=== PATIENT | female | born 1945 | race Caucasian/White ===

== ENCOUNTER 2018-01-30 12:27 | Emergency (ER) | payer MEDICARE ==
[2018-01-30 12:39] VITALS: TEMP 98.1
[2018-01-30] MEDS ORDERED: cloNIDine HCL 0.1 MG TAB PO STA (12:52)
[2018-01-30] MEDS ORDERED: ASPIRIN 81 MG PO STA (12:54)
[2018-01-30] MEDS ORDERED: NITROGLYCERIN SL TABS 0.4 MG TAB SUBLINGUAL PRN (12:55)
--- NOTE | 2018-01-30 12:59 | ED ---
SOB HPI <Akil Peterson - Last Filed: 01/30/18 14:51> - General Source: patient Mode of arrival: wheelchair Limitations: no limitations - History of Present Illness MD Complaint: shortness of breath, cough, chest pain -: hour(s) (5) Quality: dull Consistency: constant Improves With: nothing Worsens With: nothing Associated Symptoms: cough Treatments Prior to Arrival: none - Related Data Home Oxygen Therapy: No <Flora Clay - Last Filed: 01/30/18 15:10> - General Chief Complaint: Shortness of Breath Stated Complaint: Chest pain Time Seen by Provider: 01/30/18 12:40 - History of Present Illness Initial Comments: 72-year-old female presents for shortness of breath that woke her up today. Patient felt a little bit discomfort in the center right-sided for chest but is still ongoing but not very tender only about a 1-2 out of 10 pain level. Patient has been coughing as well but no fevers. Patient has recently moved from [place] in the last 6 months and has not followed up with any physicians here. Patient has not been taking her medications regularly. She states she forgets and doesn't really like to take pills. Patient denies any headache dizziness visual changes she denies any trouble speaking or swallowing. Patient admits to not having much of an appetite most days. No leg edema no changes of weight. No abdominal pain or back pain no dysuria. (Flora Clay) - Related Data Previous Rx's Medication Instructions Recorded predniSONE 10 mg PO DIRECTED #20 tab 01/30/18 Allergies Allergy/AdvReac Type Severity Reaction Status Date / Time codeine Allergy Unknown Verified 01/30/18 12:39 Penicillins Allergy Unknown Verified 01/30/18 12:39 Review of Systems ROS Other: All systems not noted in ROS Statement are negative. <NicholasAkil - Last Filed: 01/30/18 14:51> ROS Other: All systems not noted in ROS Statement are negative. Respiratory: Reports: cough Cardiovascular: Reports: chest pain. Denies: dyspnea on exertion, orthopnea, edema, syncope, paroxysmal nocturnal dyspnea Endocrine: Denies: fatigue Gastrointestinal: Denies: abdominal pain, nausea, vomiting Genitourinary: Denies: dysuria Neurological: Denies: headache, weakness, numbness, paresthesias, confusion, vertigo <Flora Clay - Last Filed: 01/30/18 15:10> ROS Statement: Those systems with pertinent positive or pertinent negative responses have been documented in the HPI. Past Medical History Past Medical History: Coronary Artery Disease (CAD), Chest Pain / Angina, Hyperlipidemia, Hypertension, Myocardial Infarction (DC) History of Any Multi-Drug Resistant Organisms: None Reported Past Surgical History: Heart Catheterization With Stent Past Psychological History: No Psychological Hx Reported Smoking Status: Former smoker Past Alcohol Use History: None Reported Past Drug Use History: None Reported <Flora Clay - Last Filed: 01/30/18 15:10> General Exam Limitations: no limitations General appearance: alert, in no apparent distress Head exam: Present: atraumatic, normocephalic, normal inspection Eye exam: Present: normal appearance, PERRL, EOMI. Absent: scleral icterus, conjunctival injection, periorbital swelling ENT exam: Present: normal exam, mucous membranes moist Neck exam: Present: normal inspection. Absent: tenderness, meningismus, lymphadenopathy Respiratory exam: Present: normal lung sounds bilaterally. Absent: respiratory distress, wheezes, rales, rhonchi, stridor Cardiovascular Exam: Present: regular rate, normal rhythm, normal heart sounds. Absent: systolic murmur, diastolic murmur, rubs, gallop, clicks GI/Abdominal exam: Present: soft, normal bowel sounds. Absent: distended, tenderness, guarding, rebound, rigid Back exam: Present: normal inspection Neurological exam: Present: alert, oriented X3 Psychiatric exam: Present: normal affect, normal mood Skin exam: Present: warm, dry, intact, normal color, rash (Dry scaly thick areas around her ears, psoriatic lesions likely) <Flora Clay - Last Filed: 01/30/18 15:10> Course <Akil Peterson - Last Filed: 01/30/18 14:51> <Flora Clay - Last Filed: 01/30/18 15:10> Vital Signs 01/30/18 01/30/18 01/30/18 12:37 13:10 13:42 Temperature 98.1 F Pulse Rate 96 73 89 Respiratory 20 18 18 Rate Blood Pressure 232/106 213/98 193/83 O2 Sat by Pulse 98 98 99 Oximetry 01/30/18 01/30/18 13:45 13:54 Temperature Pulse Rate 66 67 Respiratory Rate Blood Pressure O2 Sat by Pulse Oximetry - Reevaluation(s) Reevaluation #1: 01/30/18 14:51 I did personally do a [id number] evaluation the patient on several occasions did discuss the findings with her and her sister who was present. Patient is feeling much improved the presentation is consistent with a COPD exacerbation. Her lung sounds initially were very diminished improved after updrafts. I do agree with the assessment and plan. (Akil Peterson) Medical Decision Making - Lab Data Result diagrams: 01/30/18 13:05 01/30/18 13:05 <Akil Peterson - Last Filed: 01/30/18 14:51> - Lab Data Result diagrams: 01/30/18 13:05 01/30/18 13:05 <Flora Clay - Last Filed: 01/30/18 15:10> - Medical Decision Making Reviewed all labs all were negative except for slightly elevated d-dimer which we ordered a stat CTA to rule out PE which was negative. All other testing was negative except for exacerbation of COPD emphysema change.. Patient aware improved with nitro Catapres and DuoNeb. Patient's blood pressure was 142/74 then again 137/72. Patient much improved patient not having any symptoms no chest pain or shortness of breath pain level is 0 out of 10. Patient was also reviewed by Dr. Peterson we will send patient home on prednisone and patient to continue on current medical regimen to make sure she is taking her blood pressure medications which she states she doesn't home along with her inhalers. Patient to have close follow-up with family doctor and heavy equipment rental manager in the next week. Patient established with a seed and fertilizer specialist as well. (Flora Clay) - Lab Data Lab Results 01/30/18 01/30/18 01/30/18 Range/Units 13:05 13:05 13:05 WBC 6.6 (3.8-10.6) k/uL RBC 5.48 H (3.80-5.40) m/uL Hgb 15.2 (11.4-16.0) gm/dL Hct 45.9 (34.0-46.0) % MCV 83.7 (80.0-100.0) fL MCH 27.7 (25.0-35.0) pg MCHC 33.1 (31.0-37.0) g/dL RDW 13.7 (11.5-15.5) % Plt Count 215 (150-450) k/uL Neutrophils % 62 % Lymphocytes % 29 % Monocytes % 5 % Eosinophils % 2 % Basophils % 1 % Neutrophils # 4.1 (1.3-7.7) k/uL Lymphocytes # 2.0 (1.0-4.8) k/uL Monocytes # 0.3 (0-1.0) k/uL Eosinophils # 0.1 (0-0.7) k/uL Basophils # 0.0 (0-0.2) k/uL D-Dimer (<0.60) mg/L FEU Sodium 144 (137-145) mmol/L Potassium 3.6 (3.5-5.1) mmol/L Chloride 105 (98-107) mmol/L Carbon Dioxide 24 (22-30) mmol/L Anion Gap 15 mmol/L BUN 11 (7-17) mg/dL Creatinine 0.64 (0.52-1.04) mg/dL Est GFR (CKD-EPI)AfAm >90 (>60 ml/min/1.73 sqM) Est GFR (CKD-EPI)NonAf 90 (>60 ml/min/1.73 sqM) Glucose 86 (74-99) mg/dL Calcium 9.7 (8.4-10.2) mg/dL Total Bilirubin 0.7 (0.2-1.3) mg/dL AST 31 (14-36) U/L ALT 28 (9-52) U/L Alkaline Phosphatase 77 (38-126) U/L Total Creatine Kinase 50 (30-135) U/L CK-MB (CK-2) 0.8 (0.0-2.4) ng/mL CK-MB (CK-2) Rel Index 1.6 Total Protein 6.8 (6.3-8.2) g/dL Albumin 4.2 (3.5-5.0) g/dL TSH 2.630 (0.465-4.680) mIU/L 01/30/18 Range/Units 13:05 WBC (3.8-10.6) k/uL RBC (3.80-5.40) m/uL Hgb (11.4-16.0) gm/dL Hct (34.0-46.0) % MCV (80.0-100.0) fL MCH (25.0-35.0) pg MCHC (31.0-37.0) g/dL RDW (11.5-15.5) % Plt Count (150-450) k/uL Neutrophils % % Lymphocytes % % Monocytes % % Eosinophils % % Basophils % % Neutrophils # (1.3-7.7) k/uL Lymphocytes # (1.0-4.8) k/uL Monocytes # (0-1.0) k/uL Eosinophils # (0-0.7) k/uL Basophils # (0-0.2) k/uL D-Dimer 0.69 H (<0.60) mg/L FEU Sodium (137-145) mmol/L Potassium (3.5-5.1) mmol/L Chloride (98-107) mmol/L Carbon Dioxide (22-30) mmol/L Anion Gap mmol/L BUN (7-17) mg/dL Creatinine (0.52-1.04) mg/dL Est GFR (CKD-EPI)AfAm (>60 ml/min/1.73 sqM) Est GFR (CKD-EPI)NonAf (>60 ml/min/1.73 sqM) Glucose (74-99) mg/dL Calcium (8.4-10.2) mg/dL Total Bilirubin (0.2-1.3) mg/dL AST (14-36) U/L ALT (9-52) U/L Alkaline Phosphatase (38-126) U/L Total Creatine Kinase (30-135) U/L CK-MB (CK-2) (0.0-2.4) ng/mL CK-MB (CK-2) Rel Index Total Protein (6.3-8.2) g/dL Albumin (3.5-5.0) g/dL TSH (0.465-4.680) mIU/L Disposition <Akil Peterson - Last Filed: 01/30/18 14:51> Is patient prescribed a controlled substance at d/c from ED?: No When asked, does pt state using other controlled substances?: No If prescribed controlled substance>3 days was MAPS reviewed?: No If opioid is for acute pain is fill amount 7 days or less?: No If Rx opioid, was Start Talking consent form obtained?: No Time of Disposition: 15:10 <ObedFlora - Last Filed: 01/30/18 15:10> Clinical Impression: COPD (chronic obstructive pulmonary disease) with emphysema, Hypertension Disposition: HOME SELF-CARE Condition: Good Instructions: COPD (Chronic Obstructive Pulmonary Disease) (ED), Hypertension ( ED) Prescriptions: predniSONE 10 mg PO DIRECTED #20 tab Referrals: Nonstaff,Physician [Primary Care Provider] - 1-2 days Gabino Guzman MD [STAFF PHYSICIAN] - 1-2 days Neto George MD [STAFF PHYSICIAN] - 1-2 days
[2018-01-30 13:18] LABS: Basophils % (A) 1 %; Eosinophils # (A) 0.1 k/uL (0-0.7); Eosinophils % (A) 2 %; HCT 45.9 % (34.0-46.0); HGB 15.2 gm/dL (11.4-16.0); Lymphocytes % (A) 29 %; MCH 27.7 pg (25.0-35.0); MCHC 33.1 g/dL (31.0-37.0); MCV 83.7 fL (80.0-100.0); Mean Platelet Volume 7.6; Monocytes # (A) 0.3 k/uL (0-1.0); Monocytes % (A) 5 %; Neutrophils # (A) 4.1 k/uL (1.3-7.7); Neutrophils % (A) 62 %; Platelet Count 215 k/uL (150-450); RBC 5.48 m/uL (3.80-5.40); RDW 13.7 % (11.5-15.5); WBC 6.6 k/uL (3.8-10.6)
[2018-01-30 13:27] LABS: ALT 28 U/L (9-52); AST 31 U/L (14-36); Albumin 4.2 g/dL (3.5-5.0); Alkaline Phosphatase 77 U/L (38-126); Anion Gap 15 mmol/L; Blood Urea Nitrogen 11 mg/dL (7-17); Calcium 9.7 mg/dL (8.4-10.2); Carbon Dioxide 24 mmol/L (22-30); Chloride 105 mmol/L (98-107); Glucose 86 mg/dL (74-99); Potassium 3.6 mmol/L (3.5-5.1); Sodium 144 mmol/L (137-145); Total Bilirubin 0.7 mg/dL (0.2-1.3); Total Protein 6.8 g/dL (6.3-8.2)
[2018-01-30] MEDS ORDERED: IPRATROPIUM-ALBUTEROL 3 ML NEB INHALATION STA (13:38)
[2018-01-30 13:44] LABS: Creatine Kinase MB 0.8 ng/mL (0.0-2.4)
--- NOTE | 2018-01-30 13:45 | XR ---
EXAMINATION TYPE: XR chest 2V DATE OF EXAM: 01/30/2018 COMPARISON: NONE HISTORY: Shortness of breath TECHNIQUE: Frontal and lateral views of the chest are obtained. FINDINGS: There is some chronic parenchymal change without suspicious focal air space opacity, pleur al effusion, or pneumothorax seen. The cardiac silhouette size is within normal limits. The osseou s structures are intact. Cholecystectomy clips are noted on lateral view. IMPRESSION: No acute cardiopulmonary process.
--- NOTE | 2018-01-30 14:36 | CT ---
EXAMINATION TYPE: CT chest angio for PE DATE OF EXAM: 01/30/2018 COMPARISON: Chest x-ray earlier today HISTORY: Patient complains of difficulty breathing. CT DLP: 177.2 mGycm. Automated Exposure Control for Dose Reduction was Utilized. CONTRAST: CTA scan of the thorax is performed with IV Contrast, patient injected with 100 mL of Isovue 300, pul monary embolism protocol. MIP Images are created on CT scanner and reviewed. FINDINGS: LUNGS: Fairly moderate underlying emphysematous change is seen. The lungs are grossly clear, there is no concerning parenchymal mass or nodule identified. There is no pleural effusion or pneumothora x seen. The tracheobronchial tree is patent. MEDIASTINUM: There is satisfactory enhancement of the pulmonary artery and its branches, there is no CT evidence for pulmonary embolism. There are no greater than 1 cm hilar or mediastinal lymph nodes. No cardiomegaly or pericardial effusion is seen. Fairly prominent coronary artery calcification in LAD is seen. OTHER: Cholecystectomy clips are seen. Mild/Moderate multilevel spurring is seen. Posterior spurrin g or spur disc complex effacing anterior thecal sac mid thoracic spine on sagittal image 90. IMPRESSION: 1. No CT evidence for acute pulmonary embolism. 2. Moderate underlying emphysematous change without suspicious acute pulmonary process.
[2018-01-30 15:34] VITALS: BP 186/79; PULSE 89; RESP 16
== END 2018-01-30 15:34 | disposition home or self-care (01) ==
LOC: EC 12:27
DX: J43.9 Emphysema, unspecified (principal); I10 Essential (primary) hypertension; R79.1 Abnormal coagulation profile; R21 Rash and other nonspecific skin eruption; Z87.891 Personal history of nicotine dependence; Z88.0 Allergy status to penicillin; Z88.5 Allergy status to narcotic agent; Z95.5 Presence of coronary angioplasty implant and graft
CPT/HCPCS: 36415; 94640; 93005; 85379; 80053; 82550; 82553; 84443; 85025; 71046; 71275; 99285; Q9967